=== PATIENT | female | born 1975 | race Hispanic/Latino ===

== ENCOUNTER 2021-02-28 07:31 | Outpatient (CLI) | payer SELFPAY ==
[2021-02-28 08:44] LABS: ALT (SGPT) 83 U/L (8-55); AST (SGOT) 40 U/L (5-34); Albumin 4.4 g/dL (3.5-5.0); Alkaline Phosphatase 127 U/L (40-110); Anion Gap 17 mmol/L (10-20); BUN (Urea Nitrogen) 15 mg/dL (7.0-18.7); Bilirubin, Total 0.8 mg/dL (0.2-1.2); Calc. Creatinine Clearance 0 mL/min (70-130); Calcium 9.1 mg/dL (7.8-10.44); Carbon Dioxide 23 mmol/L (22-29); Cardiac Risk 5.8 (Less than 4.5); Chloride 104 mmol/L (98-107); Cholesterol 207 mg/dl (< 200 Desired); Glucose 171 mg/dL (70-105); HDL Cholesterol 36 mg/dL (>60 Neg Risk); LDL Cholesterol, Calculated 135 mg/dL; Potassium 4.3 mmol/L (3.5-5.1); Protein, Total 7.4 g/dL (6.0-8.3); Sodium 140 mmol/L (136-145); Triglycerides 180 mg/dL (Less than 150)
[2021-02-28 09:22] LABS: Thyroid Stimulating Hormone 6.5279 uIU/mL (0.35-4.94)
[2021-02-28 17:01] LABS: Hemoglobin A1c 7.1 % (4.0-6.0)
[2021-02-28 17:05] LABS: Creatinine, Urine 148.65 mg/dL (47-110); Microalbumin Urine 1.8 mg/dL (0.5-50.0); Microalbumin/Creat Ratio 12.1 mg/g (Less than 30)
[2021-02-28 17:36] LABS: Free T4 (Free Thyroxine) 0.92 ng/dL (0.70-1.48)
== END 2021-02-28 07:32 | disposition home or self-care (01) ==
LOC: MADLAB 07:31
DX: E03.9 Hypothyroidism, unspecified (principal); E78.2 Mixed hyperlipidemia; E11.9 Type 2 diabetes mellitus without complications
CPT/HCPCS: 36415; 80053; 80061; 82043; 83036; 84439; 84443